=== PATIENT | female | born 1995 | race Caucasian/White ===

== ENCOUNTER 2018-08-08 22:23 | Emergency (ER) | payer OTHER ==
[~2018-08-08] VITALS: Ht 162.6 cm; Wt 63.5 kg
--- NOTE | 2018-08-08 22:43 | NUR ---
Pt ambulated to ER with stable gait with the c/o sore throat, coughing green phelm and nasal congestion x 4 days. Pt denies CP, SOB, and N/V/D. Safe environment implemented.
--- NOTE | 2018-08-08 22:59 | NUR ---
Patient discharged to home in stable conditon. Written and verbal after care instructions given. Patient verbalizes understanding of instructions. Patient ambulated out of ER with stable gait.
[2018-08-08 23:00] VITALS: BP 112/74
== END 2018-08-08 23:00 | disposition home or self-care (01) ==
LOC: ER 22:23
DX: J06.9 Acute upper respiratory infection, unspecified (principal)
CPT/HCPCS: A4663

== ENCOUNTER → 2018-08-20 | Emergency (ER) | payer OTHER ==
[~2018-08-20] VITALS: Ht 165.1 cm; Wt 72.6 kg
[~2018-08-20] MED LIST: ACETAMINOPHEN 325 MG TABLET ONE; ACETAMINOPHEN 650 MG/20.3 ML LIQUID UDC PO ONE; CIPROFLOXACIN IV 400 MG in PREMIXED 1 EACH IV STA; IV NORMAL SALINE 1000 ML BAG IV ONE; KETOROLAC TROMETHAMINE 15 MG INJ IVP ONE; KETOROLAC TROMETHAMINE 15 MG INJ ONE; LEVOFLOXACIN 750 MG/D5W 150 ML PIGGYBACK IV ONE; LEVOFLOXACIN 750MG/D5W 150 ML IV ONE; METRONIDAZOLE 500 MG/NS 100 ML PIGGYBACK IV ONE; METRONIDAZOLE 500 MG/NS 100ML 100 ML IV ONE; ONDANSETRON 4 MG/2 ML VIAL IV ONE; ONDANSETRON 4 MG/2 ML VIAL ONE
--- NOTE | 2018-08-20 02:00 | NUR ---
seen ane examined by Monica at bedside.
[2018-08-20 02:32] LABS: BASOPHILS # (AUTO) 0.1 K/uL (0.0-8.0); BASOPHILS % (AUTO) 0.5 % (0.0-2.0); EOSINOPHILS # (AUTO) 0.2 K/uL (0.0-0.7); EOSINOPHILS % (AUTO) 2.5 % (0.0-7.0); HEMATOCRIT 36.1 % (31.2-41.9); HEMOGLOBIN 12.4 g/dL (10.9-14.3); LYMPHOCYTES # (AUTO) 2.5 K/uL (20.0-40.0); LYMPHOCYTES % (AUTO) 25.4 % (20.5-51.5); MEAN CORPUSCULAR HEMOGLOBIN 28.3 uug (24.7-32.8); MEAN CORPUSCULAR HGB CONC 34 g/dL (32.3-35.6); MEAN CORPUSCULAR VOLUME 82.6 fL (75.5-95.3); MONOCYTES # (AUTO) 0.7 K/uL (2.0-10.0); MONOCYTES % (AUTO) 6.9 % (0.0-11.0); NEUTROPHILS # (AUTO) 6.4 K/uL (1.8-8.9); NEUTROPHILS % (AUTO) 64.7 % (38.5-71.5); PLATELET COUNT (AUTO) 223 K/uL (179-408); RED BLOOD CELL COUNT(AUTO) 4.37 MIL/uL (3.63-4.92); WHITE BLOOD COUNT (AUTO) 9.9 K/uL (3.8-11.8)
--- NOTE | 2018-08-20 02:40 | NUR ---
went to CT via wheelchair .
[2018-08-20 02:50] LABS: ALANINE AMINOTRANSFERASE 20 U/L (14-59); ALKALINE PHOSPHATASE 97 U/L (50-136); ASPARTATE AMINOTRANSFERASE 14 U/L (15-37); BILIRUBIN,DIRECT < 0.1 mg/dL (0.0-0.2); BILIRUBIN,TOTAL 0.2 mg/dL (0.2-1.0); CARBON DIOXIDE 26 mmol/L (21-32); CHLORIDE 103 mmol/L (98-107); CREATININE 0.6 mg/dL (0.6-1.3); GLUCOSE 90 mg/dL (74-106); LIPASE 233 U/L (73-393); POTASSIUM 3.8 mmol/L (3.5-5.1); UREA NITROGEN, BLOOD 18 mg/dL (7-18)
[2018-08-20 02:53] LABS: ETHANOL < 3 MG/DL (0-0)
--- NOTE | 2018-08-20 02:55 | NUR ---
back from CT ,tolerated test.
--- NOTE | 2018-08-20 03:20 | NUR ---
patient verbalized /10 headache ,bp 110/90 ,hr 80 ,rr20 saturation 97 to 100% room air.informed dr:CALEB .
--- NOTE | 2018-08-20 03:35 | NUR ---
TYLENOL po given for headache 6/10 tolerated with water .
[2018-08-20 04:01] LABS: *BILIRUBIN,URIN NEGATIVE (NEGATIVE); *BLOOD, URINE Trace-intact (NEGATIVE); *COLOR,URINE YELLOW (YELLOW); *KETONES,URINE 1+ (NEGATIVE); *UROBILINOGEN,URINE 0.2 E.U./dl (NORMAL); LEUKOCYTE ESTERASE ,URINE 1+ (NEGATIVE); NITRITE, URINE NEGATIVE (NEGATIVE); UGLUCOSE NEGATIVE (NEGATIVE)
[2018-08-20 04:04] LABS: *CLARITY,URINE HAZY (CLEAR)
--- NOTE | 2018-08-20 04:05 | NUR ---
: CALEB at bedside discussed plan of treatment to patient and patients mother .discussed xray and CT of the abdomen results ,will start patient on antibiotics flagyl and levofloxacin.patients and patients mother verbalized understanding .
[2018-08-20 04:07] LABS: *URINE HCG, QUAL NEGATIVE (NEGATIVE); BACTERIA,URINE MANY /HPF (NONE SEEN); SQUAMOUS EPITHELIAL CELL,UR MANY /HPF (NONE SEEN)
--- NOTE | 2018-08-20 05:17 | NUR ---
0508 EKG done and results given to DR:[email or web address] .
--- NOTE | 2018-08-20 06:14 | NUR ---
Patient discharged to home in stable conditon. Written and verbal after care instructions given. Patient verbalizes understanding of instructions.patient went home ambulatory steady of gait level of pain improved 2/10 her back and stomach much better as she verbalized .v/s stable and no respiratory distress.went home with mother /father and with all her belongings.
[2018-08-20 06:34] VITALS: BP 105/90
== END | disposition home or self-care (01) ==
LOC: ER 01:56
DX: N12 Tubulo-interstitial nephritis, not specified as acute or chronic (principal); K52.9 Noninfective gastroenteritis and colitis, unspecified; E86.0 Dehydration
CPT/HCPCS: 36415; 71045; 74176; 80048; 80076; 81001; 82962; 83690; 84484; 84703; 85025; 93005; 96361; 96365; 96367; 96375; 99284; G0480; J0744; J1885; J1956; J2405; J3490; 70030-TC; A4663; J7030

== ENCOUNTER 2018-09-28 17:20 | Emergency (ER) | payer OTHER ==
[~2018-09-28] VITALS: Ht 165.1 cm; Wt 74.8 kg
--- NOTE | 2018-09-28 18:22 | NUR ---
PATIENT WAS SEEN BY MD. [facility] IN PROCESS..
--- NOTE | 2018-09-28 19:09 | NUR ---
HAND OFF REPORT GIVEN TO RADHA JHAVERI RN
--- NOTE | 2018-09-28 19:13 | NUR ---
RECEIVED SHIFT REPORT FROM ELAYNE WANG.
[2018-09-28 19:35] VITALS: BP 112/66
--- NOTE | 2018-09-28 19:35 | NUR ---
DPatient discharged to home in stable conditon. Written and verbal after care instructions given. Patient verbalizes understanding of instructions. PT D/C W/ PRESCRIPTIONS. ALL BELONGINGS W/ PT. PT SELF-AMBULATED W/O DIFFICULTY.
== END 2018-09-28 19:36 | disposition home or self-care (01) ==
LOC: ER 17:22
DX: M25.512 Pain in left shoulder (principal)
CPT/HCPCS: 73030; A4663

== ENCOUNTER 2021-06-02 22:59 | Emergency (ER) | payer OTHER ==
[~2021-06-02] VITALS: Ht 165.1 cm; Wt 68.0 kg
--- NOTE | 2021-06-02 23:13 | NUR ---
Slim HARVEY AT BEDSIDE, MSE IN PROGRESS.
[2021-06-02] MEDS ORDERED: IV NORMAL SALINE 1000 ML BAG IV ONE (23:15)
[2021-06-02] MEDS ORDERED: ACETAMINOPHEN ES 500 MG TABLET PO ONE (23:15)
[2021-06-02 23:47] LABS: HEMATOCRIT 36.9 % (31.2-41.9); MEAN CORPUSCULAR HEMOGLOBIN 27.1 uug (24.7-32.8); MEAN CORPUSCULAR VOLUME 79.2 fL (75.5-95.3); PLATELET COUNT (AUTO) 238 K/uL (179-408)
[2021-06-02 23:54] LABS: CREATININE 0.6 mg/dL (0.6-1.3); POTASSIUM 3.6 mmol/L (3.5-5.1)
[2021-06-03] MEDS ORDERED: ACETAMINOPHEN ES 500 MG TABLET ONE (01:11)
--- NOTE | 2021-06-03 01:39 | NUR ---
IV removed. Catheter intact and site benign. Pressure and 4x4 gauze applied to site. No bleeding noted.
--- NOTE | 2021-06-03 01:46 | NUR ---
Patient discharged to home in stable condition. Steady gait. Written and verbal after care instructions given. Patient verbalizes understanding of instructions. Stressed follow up or return to ER for worsening s/s. Picked up by christiano. Denies any n/v/d. No dizziness no SIMPSON.
[2021-06-03 01:52] VITALS: BP 133/64
== END 2021-06-03 01:52 | disposition home or self-care (01) ==
LOC: ER 23:00
DX: R55 Syncope and collapse (principal); S09.90XA Unspecified injury of head, initial encounter; W18.39XA Other fall on same level, initial encounter; Y92.019 Unspecified place in single-family (private) house as the place of occurrence of the external cause; Z98.84 Bariatric surgery status; R03.0 Elevated blood-pressure reading, without diagnosis of hypertension
CPT/HCPCS: 36415; 70450; 72125; 85025; 93005; A9150; J7030

== ENCOUNTER 2024-08-11 04:09 | Emergency (ER) | payer MEDICAID, OTHER ==
[~2024-08-11] VITALS: Ht 165.1 cm; Wt 74.8 kg
[2024-08-11 04:49] LABS: *URINE HCG, QUAL NEGATIVE (NEGATIVE)
[2024-08-11 04:51] LABS: BASOPHILS % (AUTO) 0.3 % (0.0-2.0); EOSINOPHILS # (AUTO) 0.2 K/uL (0.0-0.7); EOSINOPHILS % (AUTO) 1.9 % (0.0-7.0); HEMATOCRIT 37.8 % (31.2-41.9); HEMOGLOBIN 12.4 g/dL (10.9-14.3); LYMPHOCYTES # (AUTO) 2.5 K/uL (0.8-4.8); LYMPHOCYTES % (AUTO) 20.9 % (20.5-51.5); MEAN CORPUSCULAR HEMOGLOBIN 26.6 uug (24.7-32.8); MEAN CORPUSCULAR HGB CONC 33 g/dL (32.3-35.6); MEAN CORPUSCULAR VOLUME 80.8 fL (75.5-95.3); MONOCYTES # (AUTO) 0.8 K/uL (0.1-1.30); MONOCYTES % (AUTO) 6.5 % (0.0-11.0); NEUTROPHILS # (AUTO) 8.4 K/uL (1.8-8.9); NEUTROPHILS % (AUTO) 70.4 % (38.5-71.5); PLATELET COUNT (AUTO) 275 K/uL (179-408); RED BLOOD CELL COUNT(AUTO) 4.68 MIL/uL (3.63-4.92); RED CELL DISTRIBUTION WIDTH 14.6 % (12.3-17.7); WHITE BLOOD COUNT (AUTO) 11.9 K/uL (3.8-11.8)
[2024-08-11 04:52] LABS: DIFFERENTIAL COMMENT 1
[2024-08-11 05:13] LABS: ALBUMIN 3.6 g/dL (3.4-5.0); BILIRUBIN,DIRECT 0.1 mg/dL (0.0-0.2); BILIRUBIN,TOTAL 0.3 mg/dL (0.2-1.0); CALCIUM 8.5 mg/dL (8.5-10.1); CREATININE 0.6 mg/dL (0.6-1.3)
[2024-08-11] MEDS ORDERED: IOHEXOL 300MG/ML 100 ML INFUS..BTL ONE (05:40)
[2024-08-11] MEDS ORDERED: IV NORMAL SALINE 250 ML IV ONE (05:40)
[2024-08-11] MEDS ORDERED: SWABABLE VALVE TRANSFER SET EA MC ONE (05:40)
[2024-08-11 05:57] LABS: *BILIRUBIN,URIN NEGATIVE (NEGATIVE); *BLOOD, URINE NEGATIVE (NEGATIVE); *CLARITY,URINE CLEAR (CLEAR); *COLOR,URINE YELLOW (YELLOW); *KETONES,URINE NEGATIVE (NEGATIVE); *PROTEIN,URINE NEGATIVE (NEGATIVE); *UROBILINOGEN,URINE 0.2 E.U./dl (NORMAL); LEUKOCYTE ESTERASE ,URINE NEGATIVE (NEGATIVE); NITRITE, URINE NEGATIVE (NEGATIVE); UGLUCOSE NEGATIVE (NEGATIVE)
[2024-08-11] MEDS ORDERED: MORPHINE SULFATE 4 MG/1 ML DISP.SYRIN ONE ×2 (06:12→07:40)
[2024-08-11] MEDS ORDERED: ONDANSETRON 4 MG/2 ML VIAL ONE ×2 (06:12→07:48)
[2024-08-11] MEDS: ONDANSETRON 4 MG/2 ML VIAL IV ONE ×2 (06:15→07:50)
[2024-08-11] MEDS: MORPHINE SULFATE 4 MG/1 ML DISP.SYRIN IV ONE ×2 (06:15→07:47)
[2024-08-11] MEDS ORDERED: SUCR1ORA15 PO (09:11)
[2024-08-11 09:25] VITALS: BP 96/78; TEMP 98.4; O2SAT 98
== END 2024-08-11 09:27 | disposition home or self-care (01) ==
LOC: ER 04:16
DX: R10.84 Generalized abdominal pain (principal); Z90.49 Acquired absence of other specified parts of digestive tract; Z98.84 Bariatric surgery status
CPT/HCPCS: 99285; 74177; 96374; 96375; 80076; 80048; 81003; 84703; 83690; 85025; 36415; 96376; J2405 ×2; Q9967; J2270 ×2; A4606; A4663